=== PATIENT | female | born 1980 | race Caucasian/White ===

== ENCOUNTER → 2017-11-17 | Outpatient (CLI) | payer OTHER ==
[~2017-11-17] VITALS: Ht 152.4 cm; Wt 72.6 kg
[~2017-11-17] MED LIST: CLARITIN10 M1 PO; FLONASE16 GM NASAL; INTEGRA CAPSUL1 EACH PO; TESSALON PERLE100 MG PO; ZITHROMAX500 MG PO
== END | disposition home or self-care (01) ==
LOC: PPHC 17:38
DX: R05 Cough (principal); R09.89 Other specified symptoms and signs involving the circulatory and respiratory systems

== ENCOUNTER → 2017-12-04 | Emergency (ER) | payer OTHER ==
[~2017-12-04] VITALS: Ht 152.4 cm; Wt 72.6 kg
== END | disposition home or self-care (01) ==
LOC: ER 19:44
DX: J06.9 Acute upper respiratory infection, unspecified (principal); D64.9 Anemia, unspecified

== ENCOUNTER 2018-08-04 08:29 | Emergency (ER) | payer OTHER ==
[~2018-08-04] VITALS: Ht 152.4 cm; Wt 72.6 kg
== END 2018-08-04 12:33 | disposition home or self-care (01) ==
LOC: ER 08:29
DX: N93.8 Other specified abnormal uterine and vaginal bleeding (principal)

== ENCOUNTER 2018-09-06 21:42 | Emergency (ER) | payer OTHER ==
[~2018-09-06] VITALS: Ht 152.4 cm; Wt 72.6 kg
[2018-09-07] MEDS ORDERED: SKELAXIN800 MG PO (02:43)
== END 2018-09-07 02:40 | disposition home or self-care (01) ==
LOC: ER 21:42
DX: N93.8 Other specified abnormal uterine and vaginal bleeding (principal)

== ENCOUNTER 2018-09-29 13:15 | Inpatient (IN) | payer OTHER ==
[~2018-09-29] VITALS: Ht 152.4 cm; Wt 72.6 kg
[~2018-09-29 13:15] MED LIST changes: +SKELAXIN800 MG PO
[2018-09-29] MEDS ORDERED: NORETHINDRONE AC5 M1 PO (17:27)
[2018-10-03] MEDS ORDERED: SURFAK240 M1 PO (16:13)
[2018-10-03] MEDS ORDERED: PERCOCET 5-3251 EACH PO (16:13)
== END 2018-10-03 16:56 | DRG 743 ==
LOC: O/R 09-30 08:27 → OB/GYN 09-30 08:27
PROVIDERS: Obstetrics & Gynecology; Urology
PROC: 0UT90ZZ Resection of Uterus, Open Approach (ICD-10-PCS; principal; 2018-09-30 11:30)
PROC: 0UT50ZZ Resection of Right Fallopian Tube, Open Approach (ICD-10-PCS; 2018-09-30 11:30)
DX: D25.1 Intramural leiomyoma of uterus (principal); D25.0 Submucous leiomyoma of uterus; D25.2 Subserosal leiomyoma of uterus; N72 Inflammatory disease of cervix uteri; N73.6 Female pelvic peritoneal adhesions (postinfective); N83.292 Other ovarian cyst, left side; N93.8 Other specified abnormal uterine and vaginal bleeding

== ENCOUNTER 2020-10-09 11:22 | Outpatient (CLI) | payer OTHER ==
[~2020-10-09 11:22] MED LIST changes: +NORETHINDRONE AC5 M1 PO; +PERCOCET 5-3251 EACH PO; +SURFAK240 M1 PO
== END 2020-10-09 11:30 | disposition home or self-care (01) ==
LOC: LAB 11:22
PROVIDERS: ATTEND Internal Medicine Gastroenterology
DX: R10.13 Epigastric pain (principal)

== ENCOUNTER 2020-10-16 08:46 | Inpatient (IN) | payer OTHER ==
[~2020-10-16] VITALS: Ht 152.4 cm; Wt 74.8 kg
[2020-10-16] MEDS ORDERED: BENTYL10 MG/1 ML (08:57)
[2020-10-17] MEDS ORDERED: PERCOCET 5-3251 EACH PO (13:01)
[2020-10-17] MEDS ORDERED: NEURONTIN600 M1 PO (13:01)
== END 2020-10-17 17:16 | disposition home or self-care (01) | DRG 419 ==
LOC: ER 08:46 → SURG 17:25
PROVIDERS: ADMIT Surgery; ATTEND Surgery
PROC: BW40ZZZ Ultrasonography of Abdomen (ICD-10-PCS; 2020-10-16)
PROC: BF13YZZ Fluoroscopy of Gallbladder and Bile Ducts using Other Contrast (ICD-10-PCS; 2020-10-17)
PROC: 0FT44ZZ Resection of Gallbladder, Percutaneous Endoscopic Approach (ICD-10-PCS; principal; 2020-10-17 10:00)
DX: K80.00 Calculus of gallbladder with acute cholecystitis without obstruction (principal)

== ENCOUNTER 2021-06-05 08:57 | Emergency (ER) | payer OTHER ==
[~2021-06-05] VITALS: Ht 152.4 cm; Wt 72.6 kg
[~2021-06-05 08:57] MED LIST changes: +BENTYL10 MG/1 ML; +NEURONTIN600 M1 PO
[2021-06-05] MEDS ORDERED: CIPRO500 MG PO (12:33)
[2021-06-05] MEDS ORDERED: KETO10TA2 PO (12:40)
== END 2021-06-05 12:48 | disposition home or self-care (01) ==
LOC: ER 08:57
DX: R10.30 Lower abdominal pain, unspecified (principal); R30.0 Dysuria

== ENCOUNTER 2025-03-21 09:02 | Emergency (ER) | payer OTHER ==
[~2025-03-21] VITALS: Ht 152.4 cm; Wt 77.1 kg
[~2025-03-21 09:02] MED LIST changes: +CIPRO500 MG PO; +KETO10TA2 PO
[2025-03-21] MEDS ORDERED: KETOROLAC TROMETHAMINE 60 MG VIAL IM STA (10:04)
[2025-03-21 10:24] LABS: BASO % 0.4 % (0.1-1.2); EOS # 0.12 (0.04-0.54); EOS % 1.1 % (0.7-7.0); HEMATOCRIT 41.9 % (34.1-44.9); HEMOGLOBIN 14.6 g/dL (11.2-15.7); LYMPH # 1.61 (1.18-3.74); LYMPH % 14.4 % (19.3-53.1); MEAN CORPUSCULAR HEMOGLOBIN 30.4 pg (25.6-32.2); MONO # 0.62 (0.24-0.82); MONO % 5.6 % (4.7-12.5); NEUT # 8.72 (1.56-6.13); NEUT % 78.2 % (34.0-71.1); PLATELET COUNT 362 K/uL (163-369); RED CELL DISTRIBUTION WIDTH 12.1 % (11.6-14.4)
[2025-03-21] MEDS ORDERED: KETOROLAC TROMETHAMINE 60 MG VIAL IM ONE (10:24)
[2025-03-21 10:56] LABS: CALCIUM 8.9 mg/dL (8.5-10.1); CREATININE SERUM 0.86 mg/dL (0.55-1.02); GFR 71.04; POTASSIUM 3.95 mEq/L (3.5-5.1)
[2025-03-21 11:29] LABS: PH,URINE 5.5 (5.0-8.0); URINE APPEARANCE Cloudy; URINE BILIRRUBIN Negative (NEGATIVE); URINE BLOOD Large; URINE COLOR Yellow; URINE GLUCOSE Negative (NEGATIVE); URINE KETONE Trace (NEGATIVE); URINE LEUKOCYTE Moderate; URINE NITRATE Positive
[2025-03-21 11:30] LABS: URINE EPITHELIAL CELLS 21.2 uL (0.0-38.8); URINE RBC 1069.4 uL (0.0-20.8); URINE WBC 1369.2 uL (0.0-23.2)
[2025-03-21 11:57] LABS: URINE CAST 0.29 uL (0.0-1.40); URINE PROTEIN 100 (NEGATIVE)
[2025-03-21 11:59] LABS: URINE MUCUS SCANT
[2025-03-21] MEDS ORDERED: CEFTRIAXONE SODIUM 1,000 MG VIAL IV STA (14:40)
[2025-03-21] MEDS ORDERED: CEFTRIAXONE SODIUM 1,000 MG VIAL ONE (15:07)
== END 2025-03-21 15:36 | disposition home or self-care (01) ==
LOC: ER 09:17
PROVIDERS: General Practice
DX: N39.0 Urinary tract infection, site not specified (principal); M54.50 Low back pain, unspecified